=== PATIENT | female | born 1955 | race Hispanic/Latino ===

== ENCOUNTER 2022-11-03 08:06 | Outpatient (CLI) | payer BC | END 2022-11-03 08:07 | disposition home or self-care (01) | LOC: NM 08:06 | PROVIDERS: ATTEND Student in an Organized Health Care Education/Training Program | DX: E21.3 Hyperparathyroidism, unspecified (principal) | CPT/HCPCS: 78072; A9500 ==

== ENCOUNTER 2023-05-02 11:40 | Outpatient (CLI) | payer BC | END 2023-05-02 11:41 | disposition home or self-care (01) | LOC: SCSMRI 11:40 | PROVIDERS: ATTEND Otolaryngology | DX: H90.5 Unspecified sensorineural hearing loss (principal) | CPT/HCPCS: 70553; 82565 ==